=== PATIENT | male | born 1970 | race Caucasian/White ===

== ENCOUNTER 2021-11-13 08:57 | Outpatient (REF) | payer BC, SELFPAY ==
[2021-11-13 11:05] LABS: MANUAL DIFF FLAG NO
[2021-11-13 11:08] LABS: Basophils Absolute Auto 0.1 X10*3/uL (0.0-0.2); Eosinophils Absolute Auto 0.1 X10*3/uL (0.0-0.4); Eosinophils Percent Auto 1.3 % (0-4); Hematocrit 47.3 % (42.0-52.0); Hemoglobin 16.4 g/dl (14.0-18.0); Imm Gran Abs Auto 0.03 X10*3/uL (0.00-0.03); Imm Gran Pct Auto 0.4 % (0.0-0.4); Lymphocytes Absolute Auto 2.2 X10*3/uL (1.2-4.9); Lymphocytes Percent Auto 32.2 % (20-40); Mean Corpuscular HGB Conc 34.7 g/dl (31.0-36.0); Mean Corpuscular Hemoglobin 34.7 pg (27.0-33.0); Mean Platelet Volume 10.7 fL (9.4-12.4); Monocytes Absolute Auto 0.9 X10*3/uL (0.1-1.2); Monocytes Percent Auto 12.5 % (2-11); Neutrophils Absolute Auto 3.6 x10*3/uL (2.0-8.3); Neutrophils Percent Auto 52.6 % (45-73); Platelet Count 229 X10*3/uL (160-400); Red Blood Count 4.73 X10*6/uL (4.60-5.80); Red Cell Distribution Width 12.3 % (11.0-16.0); White Blood Count 6.8 X10*3/uL (4.8-10.8)
[2021-11-13 12:11] LABS: Alanine Aminotransferase 82 U/L (0-40); Albumin Level 4.5 g/dL (3.5-5.0); Alkaline Phosphatase 64 U/L (39-117); Anion Gap 15 (12-20); Aspartate Amino Transferase 50 U/L (5-37); Bilirubin Total 0.6 mg/dL (0.0-1.0); Blood Urea Nitrogen 8 mg/dL (9-16); Calcium 9.3 mg/dL (8.4-10.2); Carbon Dioxide 26 mmol/L (22-29); Chloride 102 mmol/L (96-108); Cholesterol 224 mg/dL; Estimated Glomerular Filt Rate > 60; Glucose Fasting 87 mg/dL (60-99); HDL Cholesterol 62 mg/dL; LDL Cholesterol Calculated 144 mg/dl; Potassium 4.5 mmol/L (3.3-5.1); Sodium 138 mmol/L (135-145); Total Protein 7.5 g/dL (6.5-8.0); Triglycerides 91 mg/dL
[2021-11-13 12:16] LABS: Prostate Specific Antigen 1.39 ng/mL (<0.05-4.0); Vitamin D 25-OH Total 33.4 ng/mL (>30)
== END 2021-11-13 08:58 | disposition home or self-care (01) ==
LOC: HO.MANLDS 08:57
PROVIDERS: PCP Internal Medicine; Visit Provider Internal Medicine
DX: Z00.00 Encounter for general adult medical examination without abnormal findings (principal); Z12.5 Encounter for screening for malignant neoplasm of prostate
CPT/HCPCS: 36415; 80053; 80061; 82306; 84153; 85025

== ENCOUNTER 2021-12-14 07:58 | Outpatient (REF) | payer BC, SELFPAY ==
[2021-12-14 11:42] LABS: Alanine Aminotransferase 64 U/L (0-40); Albumin Level 4.3 g/dL (3.5-5.0); Alkaline Phosphatase 60 U/L (39-117); Aspartate Amino Transferase 31 U/L (5-37); Bilirubin Direct 0.3 mg/dL (0.0-0.5); Bilirubin Total 0.8 mg/dL (0.0-1.0); Total Protein 6.9 g/dL (6.5-8.0)
== END 2021-12-14 07:59 | disposition home or self-care (01) ==
LOC: HO.MANLDS 07:58
PROVIDERS: PCP Internal Medicine; Visit Provider Internal Medicine
DX: R94.5 Abnormal results of liver function studies (principal)
CPT/HCPCS: 36415; 80076

== ENCOUNTER 2023-10-24 07:43 | Outpatient (REF) | payer BC, SELFPAY ==
--- NOTE | ~2023-10-24 | XR_ITS ---
EXAMINATION: XR SHOULDER RIGHT XR SHOULDER LEFT CLINICAL INFORMATION: Shoulder pain COMPARISON: None TECHNIQUE: Right shoulder, 4 views Left shoulder, 4 views FINDINGS: Right shoulder: Alignment is normal the acromioclavicular and glenohumeral joints. Glenohumeral joint space is normal. There are no radiographic findings of any significant inflammatory or degenerative arthropathy. No erosions or periostitis. No fracture, subluxation or focal soft tissue swelling. The undersurface of the acromion is relatively flat; query if there is any history of acromioplasty and/or surgical shaving of the distal clavicle. No evidence of calcific tendinopathy at the rotator cuff. The visualized portion of the right lung is normal. Left shoulder: Alignment is normal the acromioclavicular and glenohumeral joints. Glenohumeral joint space is normal. There are no radiographic findings of any significant inflammatory or degenerative arthropathy. No erosions or periostitis. No fracture, subluxation or focal soft tissue swelling. The undersurface of the acromion is relatively flat; query if there is any history of acromioplasty or Velvet procedure. Small, 0.3 cm calcification at the lower glenoid in region of triceps attachment. No evidence of calcium deposition within rotator cuff tendons. The visualized portion of the left lung is normal. XR/XR shoulder LT min 2V IMPRESSION: * No fracture or malalignment at either shoulder. * The findings suggest likelihood of prior surgical shaving of the distal clavicles and acromioplasties. * No evidence of calcium deposition within rotator cuff tendons at either shoulder.
--- NOTE | ~2023-10-24 | XR_ITS ---
EXAMINATION: XR SHOULDER RIGHT XR SHOULDER LEFT CLINICAL INFORMATION: Shoulder pain COMPARISON: None TECHNIQUE: Right shoulder, 4 views Left shoulder, 4 views FINDINGS: Right shoulder: Alignment is normal the acromioclavicular and glenohumeral joints. Glenohumeral joint space is normal. There are no radiographic findings of any significant inflammatory or degenerative arthropathy. No erosions or periostitis. No fracture, subluxation or focal soft tissue swelling. The undersurface of the acromion is relatively flat; query if there is any history of acromioplasty and/or surgical shaving of the distal clavicle. No evidence of calcific tendinopathy at the rotator cuff. The visualized portion of the right lung is normal. Left shoulder: Alignment is normal the acromioclavicular and glenohumeral joints. Glenohumeral joint space is normal. There are no radiographic findings of any significant inflammatory or degenerative arthropathy. No erosions or periostitis. No fracture, subluxation or focal soft tissue swelling. The undersurface of the acromion is relatively flat; query if there is any history of acromioplasty or Velvet procedure. Small, 0.3 cm calcification at the lower glenoid in region of triceps attachment. No evidence of calcium deposition within rotator cuff tendons. The visualized portion of the left lung is normal. XR/XR shoulder RT min 2V IMPRESSION: * No fracture or malalignment at either shoulder. * The findings suggest likelihood of prior surgical shaving of the distal clavicles and acromioplasties. * No evidence of calcium deposition within rotator cuff tendons at either shoulder.
[2023-10-24 07:55] LABS: MANUAL DIFF FLAG NO
[2023-10-24 08:16] LABS: Basophils Absolute Auto 0.1 X10*3/uL (0.0-0.2); Basophils Percent Auto 0.7 % (0-2); Eosinophils Absolute Auto 0.1 X10*3/uL (0.0-0.4); Eosinophils Percent Auto 1.2 % (0-4); Hematocrit 50.2 % (42.0-52.0); Hemoglobin 17.2 g/dl (14.0-18.0); Imm Gran Abs Auto 0.03 X10*3/uL (0.00-0.03); Imm Gran Pct Auto 0.3 % (0.0-0.4); Lymphocytes Percent Auto 31.2 % (20-40); Mean Corpuscular HGB Conc 34.3 g/dl (31.0-36.0); Mean Corpuscular Hemoglobin 34.1 pg (27.0-33.0); Mean Corpuscular Volume 99.6 fL (80.0-98.0); Mean Platelet Volume 9.9 fL (9.4-12.4); Monocytes Absolute Auto 0.9 X10*3/uL (0.1-1.2); Neutrophils Absolute Auto 5.5 x10*3/uL (2.0-8.3); Neutrophils Percent Auto 57.6 % (45-73); Platelet Count 315 X10*3/uL (160-400); Red Blood Count 5.04 X10*6/uL (4.60-5.80); Red Cell Distribution Width 12.5 % (11.0-16.0); White Blood Count 9.5 X10*3/uL (4.8-10.8)
[2023-10-24 09:08] LABS: Alanine Aminotransferase 45 U/L (0-40); Albumin Level 4.4 g/dL (3.5-5.0); Anion Gap 16 (12-20); Aspartate Amino Transferase 23 U/L (5-37); Bilirubin Total 0.5 mg/dL (0.0-1.0); Blood Urea Nitrogen 11 mg/dL (9-16); Calcium 9.7 mg/dL (8.4-10.2); Carbon Dioxide 27 mmol/L (22-29); Chloride 104 mmol/L (96-108); Cholesterol 190 mg/dL (<200); Estimated Glomerular Filt Rate > 60; Glucose Random 110 mg/dL (60-115); HDL Cholesterol 43 mg/dL (>40); LDL Cholesterol Calculated 133 mg/dL (<100); Potassium 4.7 mmol/L (3.3-5.1); Prostate Specific Antigen 0.69 ng/mL (<0.05-4.0); Sodium 142 mmol/L (135-145); Total Protein 7.5 g/dL (6.5-8.0); Triglycerides 73 mg/dL (<150)
[2023-10-24 09:16] LABS: Alkaline Phosphatase 63 U/L (39-117)
== END 2023-10-24 07:44 | disposition home or self-care (01) ==
LOC: HO.XRAY 07:43
PROVIDERS: PCP Internal Medicine; Visit Provider Internal Medicine
DX: Z00.00 Encounter for general adult medical examination without abnormal findings (principal); Z12.5 Encounter for screening for malignant neoplasm of prostate; M25.511 Pain in right shoulder; M25.512 Pain in left shoulder
CPT/HCPCS: 36415; 73030; 80053; 80061; 84153; 85025

== ENCOUNTER 2024-11-23 07:43 | Outpatient (REF) | payer BC, SELFPAY ==
--- OUTSIDE RECORDS SUMMARY | 2024-11-23 07:46 | XMS_ITS | Data Portability ---
Author Organization [facility] Address [address] [place] [address] Assessment No assessment recorded. Plan of Treatment Reminders Order Date Submit Date Provider Last Modified By Organization Details Last Modified Time Details Appointments ANNUAL EXAM 2024 09:00A M DR ARTHUR Not available Not available Not available Lab lipid panel, blood 2023 024 [facility], [address] [place] [address], [id number], 09/14/2024 09:29:12 CMP, serum or plasma 2023 024 [facility], [address] [place] [address], [id number], 09/14/2024 09:29:12 CBC w/ auto diff 2023 024 [facility], [address] [place] [address], [id number], 09/14/2024 09:29:12 PSA, serum or plasma 2023 024 [facility], [address] [place] [address], [id number], 09/14/2024 09:29:12 CMP, serum or plasma 2022 023 [facility], [address] [place] [address], [id number], 10/24/2023 11:08:25 CBC w/ auto diff 2022 023 [facility], [address], [place], [address], 10/24/2023 11:08:25 PSA, serum or plasma 2022 023 [facility], [address] [place], [address], 10/24/2023 11:08:25 lipid panel, blood 2022 023 [facility], [address], [place], [address], 10/24/2023 11:08:25 CMP, serum or plasma 2021 022 SH[facility] Not available 11/14/2021 13:31:26 CBC w/ auto diff 2021 022 SHAINA Not available 11/14/2021 13:31:26 lipid panel, blood 2021 022 SHAINA Not available 11/14/2021 13:31:26 PSA, serum or plasma 2021 022 SHAINA Not available 11/14/2021 13:31:26 vitamin D, 25-hydrox y, total, serum 2021 022 SHAINA Not available 11/14/2021 13:31:26 CMP, serum or plasma 2018 019 [email or web address] Not available 12/11/2018 15:11:19 PSA, serum or plasma 2018 019 [email or web address] Not available 12/11/2018 15:11:19 lipid panel, blood 2018 019 SHAINA Not available 12/16/2018 08:55:06 hepatitis C Ab, serum 2018 019 [email or web address] Not available 12/11/2018 15:11:19 Referral orthopedi c surgeon referral 2023 024 payton Mackenzie MD, [address] [place], [address], 09/24/2024 08:16:29 Procedures None recorded. Surgeries None recorded. Imaging MRI, shoulder, w/o contrast 2023 024 [facility], [address], [place], [address], 09/20/2024 08:28:52 XR, shoulder, 2 or more view - bilateral 2022 023 [facility], [address] [place], [address], 09/16/2023 08:25:57 Medication Orders None recorded. Patient TargetsNo targets recorded. Patient InstructionsNo instructions recorded. Reason for Referral Orthopedic Surgeon Referral for Rupture of rotator cuff of left shoulder Referring Physician: Kev Arthur, Internal Medicine, Encounter Date: 09/14/2024 Results Created Date Observation Date Name Description Value Unit Range Abnormal Flag Note LastModifiedBy Organization Detail LastModifiedTime 10/27/19 24 10/24/2023 XR, shoul kannan, 2 or more view No observ ation record ed. [email or web address] [facility] (Medical Records) [address] [place], [address], 09/14/2024 09:06:58 10/27/19 24 10/24/2023 XR, shoul kannan, 2 or more view No observ ation record ed. [email or web address] [facility] (Medical Records) [address] [place], [address], 09/14/2024 09:06:58 10/02/19 25 10/01/2024 MRI, shoul kannan, w/o contr ast No observ ation record ed. [email or web address] [facility] [address], [place], [address], 10/04/2024 23:24:50 Result Notes None recorded. Problems Name Problem SNOMED Code Status Onset Date Resolution Date Notes Provider Name and Address Organization Details Recorded Time Impaired fasting glycemia 494118368 Active [facility] 08:39:05 Hyperchol esterolem ia 74434655 Active 2018 Kev EdmondsonShiv Arthur, DO [address] [place] [address], [phone], [facility] 9 12:39:40 Bilateral shoulder joint pain 538700222226 62194 Active 2022 Kev Arthur, DO [address] [place] [address], [id number], [facility] 3 12:22:29 Rupture of rotator cuff of left shoulder 005474277711 20304 Active 2023 Kev Arthur, DO [address] [place] [address], [phone], [facility] 4 09:24:00 Biceps tendiniti s 145294058 Active 2024 Kev Arthur, DO [address] [place] [address], [phone], [facility] 5 23:26:43 Problem Notes None recorded. Procedures Surgical History None recorded. Imaging Results Imaging Date Name Status LastModified by Organiz ation Details LastModified Time 10/24/2023 XR, shoulder, 2 or more view completed [address] (Medical Records) [address] [place], [address], 09/14/2024 09:06:58 10/24/2023 XR, shoulder, 2 or more view completed [address] (Medical Records) [address] [place], [address], 09/14/2024 09:06:58 10/01/2024 MRI, shoulder, w/o contrast [place] [id number] [facility] [address] [address], [place], [address], 10/04/2024 23:24:50 Procedure Notes None recorded. Medical Equipment None Reported. Allergies No known drug allergies Medications Name Sig Start Date Stop Date Status Note LastModified by Organization Details LastModified Time COVID-19 test specimen collection TEST DIRECTED 11/06 completed Not Available Not Available Not Available Vitals Date Recorded Body height Body mass index (BMI) Body weight Oxygen saturation Oxygen saturation in Arterial blood by Pulse oximetry Heart rate Systolic blood pressure Diastolic blood pressure Provider Name and Address Organization Details Last Updated DateTime 2 170.18 cm 32.5 kg/m2 23293.0 6 g 98 % 98 % 78 /min 170 mm[Hg] 80 mm[Hg] Suzette Gaviria [facility] 2 14:45:25 Date Recorded Body height Body mass index (BMI) Body weight Oxygen saturation Oxygen saturation in Arterial blood by Pulse oximetry Heart rate Systolic blood pressure Diastolic blood pressure Provider Name and Address Organization Details Last Updated DateTime 3 170.18 cm 32.1 kg/m2 00985.4 4 g 96 % 96 % 94 /min 120 mm[Hg] 80 mm[Hg] Carin Villegas [facility] 3 12:03:41 Date Recorded Body height Body weight Heart rate Oxygen saturation Oxygen saturation in Arterial blood by Pulse oximetry Systolic blood pressure Diastolic blood pressure Provider Name and Address Organization Details Last Updated DateTime 4 170.18 cm 10608.9 6 g 91 /min 95 % 95 % 142 mm[Hg] 90 mm[Hg] Kristy Galaviz [facility] 4 09:03:29 Date Recorded Body height Body mass index (BMI) Body weight Heart rate Oxygen saturation Oxygen saturation in Arterial blood by Pulse oximetry Systolic blood pressure Diastolic blood pressure Provider Name and Address Organization Details Last Updated DateTime 9 170.18 cm 29.5 kg/m2 93284.8 g 108 /min 96 % 96 % 128 mm[Hg] 88 mm[Hg] Ne Reynaga [facility] 9 14:25:09 Date Recorded Body height Body mass index (BMI) Body weight Heart rate Oxygen saturation Oxygen saturation in Arterial blood by Pulse oximetry Systolic blood pressure Diastolic blood pressure Provider Name and Address Organization Details Last Updated DateTime 9 170.18 cm 30.3 kg/m2 27973.0 5 g 87 /min 97 % 97 % 124 mm[Hg] 86 mm[Hg] Dai Queenie [facility] 9 12:09:01 Social History Question Answer Notes LastModified by Organizat ion Details LastModified Time Tobacco Smoking Status Former Smoker Not Available [employer] 08/01/2020 03:36:24 What Is Your Level Of Alcohol Consumption? None [id number] Information not available 08/01/2020 What Is Your Level Of Caffeine Consumption? Heavy [id number] Information not available 08/01/2020 What Was The Date Of Your Most Recent Tobacco Screening? 09/14/2024 [email or web address] Information not available 09/14/2024 Sex: Unknown Functional Status Question Answer Note LastModified by Organization D etails LastModified Time What is your exercise level? None [id number] Information not available 08/01/2020 Mental Status None recorded. Family History Nothing Reported. Medical History No medical history recorded. Past Encounters Encounter ID Performer Location Encounter Start Date Encounter Closed Date Diagnosis/Indication Diagnosis SNOMED-CT Code Diagnosis ICD10 Code Diagnosis Note [id number] Kev Arthur DO [facility] [address] [facility], [place] [address] 12/11/2018 14:16:10 12/11/2018 15:17:48 Adult health examination 444258660 Z00.00 Active or passive immunization 652122774 Z23 [id number] Kev Arthur DO [facility] [address] [facility] [place] [address] 12/16/2018 12:00:43 12/16/2018 14:18:08 Hypercholesterolemia 18226081 E78.00 will be better in the future and will be in and rechk in 4 months [id number] Kev Arthur DO [facility] [address] [facility], [employer] [place] [place] [address] 11/06/2021 14:33:39 11/06/2021 15:39:39 Active or passive immunization 346965105 Z23 [facility]d [facility] 850162641 Z00.00 encouraged to lose wgt and get more exerciseQU IT SMOKING!!! !!!!!!he will get his bp checked at home and will followsays he will consider decrease in etoh [id number] Kev Perez Linhcruz, [facility] [address] [facility],[place] [address] 09/09/2023 11:48:49 09/09/2023 14:01:36 Hypercholesterolemia 68288324 E78.00 will be better in the future and will be in and rechk in 4 months Adult heal th examination 116779175 Z00.00 encouraged to lose wgt and get more exerciseno t SMOKING!!h e will get his bp checked at home and will followsays he will consider decrease in etoh Bilateral shoulder joint pain 5966217604 4029192 M25.511 M25.512 [id number] Kev Arthur, [facility] [address] [facility], [place] [address] 09/14/2024 08:50:00 09/14/2024 09:30:34 Active or passive immunization 635823622 Z23 utd Adult heal th examination 533761727 Z00.01 encouraged to lose wgt and get more exerciseno t SMOKING!! minimal cannabhe will get his bp checked at home and will followsays he will consider decrease in etoh Depression screening 171 015817 Z13.31 SCREENING NEGATIVE Hypercholesterolemia 136 12306 E78.00 will be better in the future and will be in and rechk in 4 months Rupture of rotator cuff of left shoulder 2835569566 3490382 M75.102 Health Concerns Section Related Observation LastModified by Organization Detai ls LastModified Time None Recorded Concern Status LastModified by Organization Details LastModified Time None Recorded Advance Directives Directive None Recorded Payers Encounter Date Sequence Insurance Name Policy Number Policy Cho Covered Member ID Cho Member ID Guarantor Name 12/11/2018 1 [place] [id number] Elton Rayo [id number] Elton Rayo 12/16/2018 1 [place] [id number] Elton Rayo [id number] Elton Rayo 11/06/2021 1 [place] [id number] Elton Rayo [id number] Elton Rayo 09/09/2023 1 [place] [id number] Elton Rayo [id number] Elton Rayo 09/14/2024 1 [place] [id number] Kimberli Rayo [id number] Elton Rayo Notes Date Note Type Note Provider Name a ma Address Organization Details Recorded Time 9 text/html Annual WellnessReported bypatient.Diet and Nutrition:healthy diet Fracture Risk:no history of fractures; no recent explained fracture; no sudden unexplained fractures; no previous musculoskeletal injuries Physical Activity:exercises on a regular basis; recent increase in physical activity; good physical condition Additional Lifestyle Factors:no tobacco use; no alcohol intake; stopped drinking alcohol Depression Risk:never feels sad, empty, or tearful; no loss of interest in activities; no significant changes in weight; no sleep disturbances or insomnia; no agitation; no loss of energy; no feelings of worthlessness or guilt; no thoughts of suicide; no history of depression; no history of mood disorders Hearing:no loss of hearing Vision:no vision problems Kev Arthur [address], [address] 12/11/2018 15:11:28 2 text/html Annual WellnessReported bypatient.Diet and Nutrition:healthy diet Fracture Risk:no history of fractures; no recent explained fracture; no sudden unexplained fractures; no previous musculoskeletal injuries Physical Activity:exercises on a regular basis; recent increase in physical activity; good physical condition Additional Lifestyle Factors:no tobacco use; no alcohol intake; stopped drinking alcohol Depression Risk:never feels sad, empty, or tearful; no loss of interest in activities; no significant changes in weight; no sleep disturbances or insomnia; no agitation; no loss of energy; no feelings of worthlessness or guilt; no thoughts of suicide; no history of depression; no history of mood disorders Hearing:no loss of hearing Vision:no vision problems Kev Arthur DO [address] [place] [address], [phone] 11/06/2021 15:24:44 3 text/html here for rechk and doing ok overallno cp nossob sleep okappetite okbowels ok no blood bladder ok Kev Arthur DO [address] [place], [address], [facility] 09/09/2023 12:25:59 4 text/html Annual WellnessReported bypatient.Diet and Nutrition:healthy diet Fracture Risk:no history of fractures; no recent explained fracture; no sudden unexplained fractures; no previous musculoskeletal injuries Physical Activity:exercises on a regular basis; recent increase in physical activity; good physical condition Additional Lifestyle Factors:no tobacco use; no alcohol intake; stopped drinking alcohol Depression Risk:never feels sad, empty, or tearful; no loss of interest in activities; no significant changes in weight; no sleep disturbances or insomnia; no agitation; no loss of energy; no feelings of worthlessness or guilt; no thoughts of suicide; no history of depression; no history of mood disorders Hearing:no loss of hearing Vision:no vision problems Kev Arthur DO [address] [place], [address], [facility] 09/14/2024 09:27:05
[2024-11-23 13:29] LABS: MANUAL DIFF FLAG NO
[2024-11-23 13:35] LABS: Basophils Absolute Auto 0.1 X10*3/uL (0.0-0.2); Basophils Percent Auto 0.9 % (0-2); Eosinophils Absolute Auto 0.1 X10*3/uL (0.0-0.4); Eosinophils Percent Auto 1.4 % (0-4); Hematocrit 46.6 % (42.0-52.0); Hemoglobin 15.5 g/dl (14.0-18.0); Imm Gran Abs Auto 0.04 X10*3/uL (0.00-0.03); Imm Gran Pct Auto 0.5 % (0.0-0.4); Lymphocytes Absolute Auto 2.4 X10*3/uL (1.2-4.9); Lymphocytes Percent Auto 27.3 % (20-40); Mean Corpuscular HGB Conc 33.3 g/dl (31.0-36.0); Mean Corpuscular Hemoglobin 34.6 pg (27.0-33.0); Mean Platelet Volume 11.2 fL (9.4-12.4); Monocytes Absolute Auto 0.8 X10*3/uL (0.1-1.2); Neutrophils Absolute Auto 5.4 x10*3/uL (2.0-8.3); Neutrophils Percent Auto 60.9 % (45-73); Platelet Count 272 X10*3/uL (160-400); Red Blood Count 4.48 X10*6/uL (4.60-5.80); Red Cell Distribution Width 12.2 % (11.0-16.0); White Blood Count 8.8 X10*3/uL (4.8-10.8)
[2024-11-23 14:13] LABS: Prostate Specific Antigen 0.67 ng/mL (<0.05-4.0)
[2024-11-23 14:22] LABS: Alanine Aminotransferase 33 U/L (0-40); Albumin Level 3.8 g/dL (3.5-5.0); Alkaline Phosphatase 72 U/L (39-117); Anion Gap 13 (12-20); Aspartate Amino Transferase 29 U/L (5-37); Bilirubin Total 0.2 mg/dL (0.0-1.0); Blood Urea Nitrogen 7 mg/dL (9-16); Calcium 9.1 mg/dL (8.4-10.2); Carbon Dioxide 26 mmol/L (22-29); Chloride 106 mmol/L (96-108); Cholesterol 188 mg/dL (<200); Estimated Glomerular Filt Rate > 60; Glucose Random 104 mg/dL (60-115); HDL Cholesterol 43 mg/dL (>40); LDL Cholesterol Calculated 120 mg/dL (<100); Potassium 4.6 mmol/L (3.3-5.1); Sodium 140 mmol/L (135-145); Triglycerides 126 mg/dL (<150)
== END 2024-11-23 07:44 | disposition home or self-care (01) ==
LOC: HO.MANLDS 07:43
PROVIDERS: Visit Provider Internal Medicine
DX: E78.00 Pure hypercholesterolemia, unspecified (principal); Z12.5 Encounter for screening for malignant neoplasm of prostate
CPT/HCPCS: 36415; 80053; 80061; 84153; 85025